=== PATIENT | male | born 2000 | race Caucasian/White ===

== ENCOUNTER 2021-06-29 19:51 | Inpatient (IN) | payer OTHER ==
[~2021-06-29] VITALS: Ht 172.7 cm; Wt 73.1 kg
[2021-06-29 20:30] LABS: COVID AG,FIA SOURCE NASAL SWAB
[2021-06-29 20:40] LABS: AMPHET/METH SCREEN,URINE NEGATIVE (NEGATIVE); BARBITURATE SCREEN, URINE NEGATIVE (NEGATIVE); BENZODIAZEPINES SCREEN,URINE NEGATIVE (NEGATIVE); CANNABINOID SCREEN,URINE POSITIVE (NEGATIVE); COCAINE SCREEN,URINE NEGATIVE (NEGATIVE); METHADONE SCREEN, URINE NEGATIVE (NEGATIVE); OPIATE SCREEN,URINE NEGATIVE (NEGATIVE)
[2021-06-29 20:42] LABS: BASOPHILS % (AUTO) 0.5 % (0.0-2.0); HEMATOCRIT 37.8 % (41-53); HEMOGLOBIN 12.7 g/dL (13.5-17.5); LYMPHOCYTES % (AUTO) 31.9 % (22.0-44.0); MEAN CORPUSCULAR HEMOGLOBIN 30.4 pg (26.0-34.0); MEAN CORPUSCULAR HGB CONC 33.7 G/dL (31.0-37.0); MEAN CORPUSCULAR VOLUME 90 fL (80-100); MONOCYTES # (AUTO) 0.5 K/uL (0.1-1.0); MONOCYTES % (AUTO) 7.5 % (2.0-9.0); NEUTROPHILS # (AUTO) 3.7 K/uL (1.8-7.7); NEUTROPHILS % (AUTO) 58.1 % (40.0-70.0); PLATELET COUNT (AUTO) 207 K/uL (150-450); RED BLOOD CELL COUNT(AUTO) 4.18 MIL/uL (4.50-5.90); RED CELL DISTRIBUTION WIDTH 13.7 % (11.5-14.5)
[2021-06-29 20:44] LABS: PHENCYCLIDINE SCREEN,URINE NEGATIVE (NEGATIVE)
[2021-06-29 20:51] LABS: ANION GAP 8 mmol/L (8-16); CARBON DIOXIDE 27 mmol/L (22-29); CHLORIDE 104 mmol/L (98-107); CREATININE 0.89 mg/dL (0.60-1.30); GLOMERULAR FILTR. RATE CALC > 60 mL/min (>60); GLUCOSE,RANDOM 94 mg/dL (70-110); SODIUM SERUM 139 mmol/L (136-145); UREA NITROGEN, BLOOD 10 mg/dL (7-18)
[2021-06-29 20:58] LABS: ALANINE AMINOTRANSFERASE 30 U/L (12-78); ALBUMIN 4.2 g/dL (3.4-5.0); ALKALINE PHOSPHATASE 57 U/L (46-116); ASPARTATE AMINOTRANSFERASE 35 U/L (15-37); BILIRUBIN,TOTAL 0.9 mg/dL (0.1-1.0); TOTAL PROTEIN, SERUM 7.3 g/dL (6.4-8.2)
[2021-06-29 22:43] VITALS: BP 134/58
[2021-06-29] MEDS ORDERED: ONDANSETRON HCL 4 MG/2 ML VIAL IVP PRN (23:15)
[2021-06-29] MEDS ORDERED: ACETAMINOPHEN 325 MG TABLET PO PRN (23:15)
[2021-06-29 23:33] LABS: THYROID STIMULATING HORMONE 1.18 uIU/mL (0.36-3.74)
[2021-06-30] MEDS: HEPARIN SODIUM,PORCINE 5,000 UNITS/ML VIAL SQ SCH ×2 (02:01→08:00)
[2021-06-30 04:20] VITALS: BP 134/94
[2021-06-30 08:00] VITALS: BP 124/71
[2021-06-30 19:30] VITALS: BP 136/76
[2021-07-01 05:15] VITALS: BP 131/63
[2021-07-01 08:21] VITALS: BP 123/70
[2021-07-01 16:56] VITALS: BP 135/71
== END 2021-07-01 17:35 | DRG 880 ==
LOC: EMS 19:54 → 6S 21:46
PROVIDERS: ADMIT Internal Medicine; ATTEND Internal Medicine
DX: R45.851 Suicidal ideations (principal); F12.90 Cannabis use, unspecified, uncomplicated; F17.210 Nicotine dependence, cigarettes, uncomplicated; R45.850 Homicidal ideations; Z20.822 Contact with and (suspected) exposure to COVID-19
CPT/HCPCS: 80053; 84443; 85025; 93005; 99285; G0480; J1644